=== PATIENT | male | born 1970 | race African-American/Black ===

== ENCOUNTER 2023-01-28 12:30 | Emergency (ER) | payer MEDICAID ==
[~2023-01-28] VITALS: Ht 188 cm; Wt 151.0 kg
[2023-01-28 12:43] VITALS: TEMP 99.2; O2SAT 100
[2023-01-28 14:00] VITALS: BP 158/82; PULSE 70; RESP 20
[2023-01-28] MEDS ORDERED: IBUPROFEN 400MG TABLET PO ONE (14:00)
[2023-01-28] MEDS ORDERED: AMOXICILLIN/POTASSIUM CLAVULANATE 875/125MG TAB PO ONE (14:00)
[2023-01-28] MEDS ORDERED: NAPR-681 MT (14:15)
[2023-01-28] MEDS ORDERED: AMOX1TAB16 MT (14:15)
[2023-01-28 14:30] LABS: BASOPHILS % 0.3 % (0.0-2.0); CHLORIDE 106 mEq/L (98-107); EOSINOPHILS % 3.2 % (0.0-5.0); HEMATOCRIT. 38.7 % (42.0-52.0); LYMPHOCYTES % 36.2 % (20.0-50.0); MEAN CORPUSCULAR HEMOGLOBIN 29.3 pg (28.0-32.0); MEAN CORPUSCULAR VOLUME 87.3 fL (80.0-94.0); MEAN PLATELET VOLUME 11.3 fl (7.4-10.4); MONOCYTES % 4.7 % (2.0-8.0); NEUTROPHILS % 55.6 % (40.0-76.0); PLATELET 223 x1000/uL (130-400); RED BLOOD CELL COUNT 4.43 mill/uL (4.7-6.1); RED CELL DISTRIBUTION WIDTH 13.6 % (11.6-14.6)
== END 2023-01-28 15:29 | disposition home or self-care (01) ==
LOC: ER 12:30
DX: K08.89 Other specified disorders of teeth and supporting structures (principal)
CPT/HCPCS: 36415; 80053; 85025; 99283

== ENCOUNTER 2023-05-11 08:10 | Emergency (ER) | payer MEDICAID, OTHER ==
[~2023-05-11] VITALS: Ht 185.4 cm; Wt 149.0 kg
[~2023-05-11 08:10] MED LIST: AMOX1TAB16 MT; NAPR-681 MT
[2023-05-11 08:24] VITALS: BP 151/76; PULSE 72; RESP 19; TEMP 98; O2SAT 96
[2023-05-11] MEDS ORDERED: CLIN-194 MT (09:27)
[2023-05-11] MEDS ORDERED: P20 PO (09:27)
== END 2023-05-11 09:47 | disposition home or self-care (01) ==
LOC: ER 08:10
DX: K04.7 Periapical abscess without sinus (principal); M54.32 Sciatica, left side; M79.605 Pain in left leg
CPT/HCPCS: 99283